=== PATIENT | female | born 1950 | race Caucasian/White ===

== ENCOUNTER → 2023-07-08 09:35 | Outpatient (REF) | payer MEDICARE, OTHER, SELFPAY ==
[2023-07-08 11:09] LABS: ALT (SGPT) 23 U/L (0-35); AST (SGOT) 24 U/L (14-36); HDL Cholesterol 101 mg/dl; LDL Cholesterol, Calculated 63 mg/dl; Total Cholesterol 200 mg/dl (50-199); Triglyceride 180 mg/dl (10-149); Very Low Density Lipoprotein 36 mg/dl (0-30)
== END ==
LOC: REG 09:35
PROVIDERS: ATTENDING PHYSICIAN Internal Medicine Cardiovascular Disease
DX: G45.9 Transient cerebral ischemic attack, unspecified (principal); E78.5 Hyperlipidemia, unspecified
CPT/HCPCS: 36415; 80061; 84450; 84460

== ENCOUNTER 2024-06-09 08:39 | Emergency (ER) | payer MEDICARE, OTHER, SELFPAY ==
[2024-06-09 08:44] VITALS: BP 109/73
[2024-06-09] MEDS: TYLENOL 1000 MG PO (09:24)
[2024-06-09] MEDS: NSS 1000 IV (09:24)
--- NOTE | 2024-06-09 09:26 | ED.GENMED ---
History of Present Illness
General
Chief Complaint: Fatigue
Source: patient and spouse
Exam Limitations: none
Time Seen by Provider: 06/09/24 09:00
Nursing documentation reviewed up to this point in time: agreed with
History of Present Illness
History of Present Illness:
74-year-old female presents with fatigue body aches chills urinary frequency trouble emptying her bladder with back pain had urodynamics at Dr. Rhodes office 7 to 10 days ago, afterward developed the symptoms, had a mild cough thought she may have
COVID had negative COVID test, no vomiting but not much of an appetite sleeping a lot
Past History
Past History
ED Past Medical History: Hypercholesterolemia, NIDDM (Impaired fasting glucose), Psychiatric (Major depression) and Other (Migraines osteopenia); Negative CAD, HTN or IDDM
ED Past Surgical History: None
Social History
Tobacco: Smoker
Alcohol: None
Drug: None
Personal:
Living: with family
Employment: Retired
Family History
Family History: CAD
Review of Systems
Review of Systems
All Other Systems: Not applicable
Constitutional: Reports fatigue and chills
Respiratory: Reports cough
ABD/GI: Reports anorexia; Denies abdominal pain, nausea or vomiting
: Reports flank pain, difficulty voiding and urgency
Musculoskeletal: Reports muscle stiffness
Skin: Reports no symptoms
Neurological: Reports weakness
Phy Exam
Physical Exam
Physical Exam:
Physical Exam
General: 74-year-old female mild distress feels warm
Neck: Lips are slightly dry
Heart: s1/s2 regular rate and rhythm, no murmur. equal radial pulses.
Lungs: no acute respiratory distress. clear bilaterally
Abdomen: Soft nontender no CVA tenderness
Neuro: alert and oriented. no focal neurological deficits
Skin: no rash
Psychiatric: well kept. interactive and cooperative
Extremities: no edema.
Course
Orders/Labs/Results
Orders:
Orders
06/09/24 09:13
COVID-19 Antigen Urgent
Source: Nasal Swab
Complete Blood Count/With Diff Urgent
Comprehensive Metabolic Panel Urgent
Urinalysis Reflex To Culture Urgent
Date Specimen was Collected: 06/09/24
Time Specimen was Collected: 09:06
Urine Microscopic Reflex Cult Urgent
Influenza A+B Rapid Molecular Urgent
DANYELL Source: Nasal Swab
Specimen Description:
Date Specimen was Collected: 06/09/24
Time Specimen was Collected: 09:06
CXR2 [CR Chest - 2 Views ] Urgent
Comment:
Reason For Exam: cough
06/09/24 09:15
0.9% Sodium Chloride 1000 ml [Nss] 1,000 ml IV BOLUS
Acetaminophen [Tylenol] 1,000 mg PO NOW STA
06/09/24 09:26
Bladder Scan- Treatment ONCE
06/09/24 09:51
CefTRIAXone [Rocephin] 1,000 mg IV NOW STA
06/09/24 12:13
Add On- LAB Urgent
Tests Added?: urine culture
Abnormal Lab Results
06/09/24
09:13
WBC 3.4 L 10^3/uL
(4.8-10.8)
Absolute Lymphs (auto) 1.0 L 10^3/uL
(1.2-3.4)
Monocytes % 13.0 H %
(1.7-9.3)
BUN 25 H mg/dl
(7-17)
Glucose 106 H mg/dl
(70-99)
Total Bilirubin 0.1 L mg/dl
(0.2-1.3)
Urine Ketones 1+ A
(Negative)
Leukocyte Esterase Rfl Trace A
(Negative)
06/09/24 09:13
06/09/24 09:13
Vital Signs
Initial and Last Documented VS:
Initial Vital Signs
Temp Pulse Resp BP Pulse Ox
99.0 F 95 18 109/73 95
06/09/24 08:44 06/09/24 08:44 06/09/24 08:44 06/09/24 08:44 06/09/24 08:44
Last Documented Vital Signs
Temp Pulse Resp BP Pulse Ox
98.9 F 74 16 118/69 99
06/09/24 12:00 06/09/24 12:00 06/09/24 12:00 06/09/24 12:00 06/09/24 12:00
MDM/Problems Addressed
Differential Diagnosis Includes:
UTI pyelonephritis viral syndrome pneumonia
MDM/Problems Addressed:
Fatigue urinary issue
Chronic conditions affecting care:
Diabetes recent urodynamics
Acute Exacerbation and/or Progression of Chronic Illness:
Diabetes recent urodynamic
*Radiology
Radiology exam reviewed: preliminary read by ED provider
*Pulse Oximetry
Patient hypoxic: no
*Lead Painter Interpretation
Rate: normal
Interpretation: normal
Heart Rate: 78
Rhythm: sinus
*Critical Care Note
Total Time (30-74mins, 75-104mins- exclusive of procedures): Not Applicable
Update Note
Update Note:
Update labs noted influenza positive chest x-ray urinalysis noted allergies reviewed previously with pharmacy
Update patient feeling better, will add urine culture to her history of being instrumented, tolerated ceftriaxone without any difficulty has been sick for greater than 96 hours with influenza Tamiflu not indicated reviewed with patient
ED Attending Note
-
Portions of this chart may have been created with voice recognition software.� Occasional wrong word or��sound alike� substitutions may have occurred due to the inherent limitations of voice recognition software.
Discharge Plan
Departure
Patient Disposition: Home (Routine Discharge)
Date of Disposition: 06/09/24
Time of Disposition: 12:19
Patient with high blood pressure during this ER visit?: No
Condition: Good
Covid-19: Negative COVID-19
Discharge Problem:
Influenza A
Instructions: Flu in adults - ED discharge instructions
Prescriptions:
No Action
multivitamin Tablet
1 tab PO DAILY
cholecalciferol (vitamin D3) [Vitamin D3] 25 mcg (1,000 unit) Tablet
25 mcg PO DAILY
turmeric 400 mg Capsule
400 mg PO DAILY
bupropion HCl 150 mg tablet extended release 24 hr
150 mg PO DAILY
aspirin 81 mg Tablet,Delayed Release (Dr/Ec)
81 mg PO DAILY Qty: 0 0RF
clopidogrel 75 mg Tablet
75 mg PO DAILY Qty: 21 0RF
ezetimibe 10 mg Tablet
10 mg PO HS Qty: 30 0RF
Referrals:
Leigh Olivas MD [Family Provider] - Next open appointment
Activity Restrictions/Additional Instructions:
Drink plenty of fluids Zofran as needed for nausea vomiting, Motrin or Tylenol for fever and bodyaches
Interventions
Interventions:
*Risk Screen - Suicide Last Done: 06/09/24 08:44
*General Assessment Last Done: 06/09/24 08:44
*Neglect/Abuse Screening Last Done: 06/09/24 08:44
ED-Female Genitourinary Assessment Last Done: 06/09/24 10:33
Discharge Date and Time
Print Language: AUSTRALIAN
[2024-06-09 09:30] LABS: % Basophils 0.3 % (0-2); % Eosinophils 0.9 % (0-6); % Immature Granulocytes 0.3 % (0-0.5); % Lymphocytes 30.1 % (20.5-51.1); % Neutrophils 55.4 % (42.2-75.2); Absolute Monocytes 0.4 10^3/uL (0.1-0.6); Absolute Neutrophils 1.9 10^3/uL (1.4-6.5); Hematocrit 40.1 % (37.0-47.0); Hemoglobin 13.9 g/dL (12.0-16.0); Mean Corp Hgb Conc. 34.7 g/dL (33.0-37.0); Mean Corpuscular Hgb 29.9 pg (27.0-31.0); Mean Corpuscular Volume 86.2 fL (81.0-99.0); Mean Platelet Volume 10.1 fL (7.4-10.4); Nucleated Red Blood Cells % 0 %; Platelet Count 185 10^3/uL (130-400); Red Blood Cell Count 4.65 10^6/uL (4.20-5.40); Red Cell Dist. Width 13.1 % (11.5-14.5); White Blood Cell Count 3.4 10^3/uL (4.8-10.8)
[2024-06-09 09:41] LABS: ALT (SGPT) 30 U/L (0-35); AST (SGOT) 34 U/L (14-36); Albumin 3.9 g/dl (3.5-5.0); Alkaline Phosphatase 93 U/L (38-126); Blood Urea Nitrogen 25 mg/dl (7-17); Calcium 8.4 mg/dl (8.4-10.2); Carbon Dioxide 22 mmol/L (22-30); Chloride 104 mmol/L (98-107); Glucose 106 mg/dl (70-99); Potassium 3.9 mmol/L (3.5-5.1); Sodium 135 mmol/L (135-145); Total Bilirubin 0.1 mg/dl (0.2-1.3); Total Protein 6.4 g/dl (6.3-8.2); eGFR > 60.00
[2024-06-09 09:56] VITALS: BMI 23.5
[2024-06-09 10:19] LABS: Urine Albumin Trace (Neg - Trace); Urine Bilirubin Negative (Negative); Urine Character Clear (Clear); Urine Color Yellow; Urine Glucose Negative (Negative); Urine Ketone 1+ (Negative); Urine Leukocyte Trace (Negative); Urine Nitrite Negative (Negative); Urine Occult Blood Negative (Negative); Urine Specific Gravity 1.025 (<1.030); Urine Urobilinogen Negative (Neg - 1+)
[2024-06-09] MEDS: ROCEPHIN 1000 MG IV (10:30)
[2024-06-09 10:34] VITALS: BP 125/60
[2024-06-09 11:05] LABS: Urine Amorphous Seen
[2024-06-09 11:06] LABS: Urine Red Blood Cell 0-2 /HPF (0-2); Urine White Cell 0-2 /HPF (0-5)
[2024-06-09 11:07] LABS: Urine Calcium Oxalate Crystals Seen
[2024-06-09 12:00] VITALS: BP 118/69
== END 2024-06-09 12:31 | disposition home or self-care (01) ==
LOC: EMR 08:39
PROVIDERS: EMERGENCY PHYSICIAN Emergency Medicine; FAMILY PHYSICIAN Internal Medicine
DX: J10.1 Influenza due to other identified influenza virus with other respiratory manifestations (principal); E78.00 Pure hypercholesterolemia, unspecified; E11.9 Type 2 diabetes mellitus without complications; F17.200 Nicotine dependence, unspecified, uncomplicated; Z79.4 Long term (current) use of insulin; Z82.49 Family history of ischemic heart disease and other diseases of the circulatory system
CPT/HCPCS: 99283; 96374; 96361; 71046; 80053; 81003; 81015; 85025; 87086; 87502

== ENCOUNTER → 2025-04-05 06:42 | Outpatient (REF) | payer MEDICARE, OTHER, SELFPAY ==
[2025-04-05 07:47] LABS: Hematocrit 42.1 % (37.0-47.0); Hemoglobin 14.0 g/dL (12.0-16.0); Mean Corp Hgb Conc. 33.3 g/dL (33.0-37.0); Mean Corpuscular Volume 89.8 fL (81.0-99.0); Nucleated Red Blood Cells % 0 %; Platelet Count 277 10^3/uL (130-400); Red Cell Dist. Width 13.0 % (11.5-14.5)
[2025-04-05 08:25] LABS: ALT (SGPT) 32 U/L (0-35); AST (SGOT) 25 U/L (14-36); Albumin 4.1 g/dl (3.5-5.0); Alkaline Phosphatase 95 U/L (38-126); Blood Urea Nitrogen 27 mg/dl (7-17); Calcium 9.1 mg/dl (8.4-10.2); Carbon Dioxide 30 mmol/L (22-30); Chloride 104 mmol/L (98-107); Glucose 99 mg/dl (70-99); HDL Cholesterol 84 mg/dl; LDL Cholesterol, Calculated 91 mg/dl; Potassium 4.0 mmol/L (3.5-5.1); Sodium 138 mmol/L (135-145); Total Protein 6.6 g/dl (6.3-8.2); Very Low Density Lipoprotein 28 mg/dl (0-30); eGFR > 60.00
[2025-04-05 08:29] LABS: Microalb - Urine Creatinine 108.000 mg/dl
[2025-04-05 08:35] LABS: Microalbumin, Random Urine 1.3 mg/dl (0.6-1.7)
[2025-04-05 09:46] LABS: Glycohemoglobin (HgbA1c) 6.2 % (4.0-5.9)
== END ==
LOC: REG 06:42
PROVIDERS: ATTENDING PHYSICIAN Nurse Practitioner Family
DX: E78.2 Mixed hyperlipidemia (principal); E11.69 Type 2 diabetes mellitus with other specified complication; D68.51 Activated protein C resistance; F17.200 Nicotine dependence, unspecified, uncomplicated
CPT/HCPCS: 36415; 80053; 80061; 82043; 82570; 83036; 84443; 85025

== ENCOUNTER 2025-05-02 07:41 | Day surgery (SDC) | payer MEDICARE, OTHER, SELFPAY | END 2025-05-02 09:31 | disposition home or self-care (01) | LOC: GI 07:41 | PROVIDERS: ATTENDING PHYSICIAN Internal Medicine Gastroenterology | DX: Z12.11 Encounter for screening for malignant neoplasm of colon (principal); K62.1 Rectal polyp; Z86.0101 Personal history of adenomatous and serrated colon polyps | CPT/HCPCS: 45385; 88305 ==